=== PATIENT | female | born 1960 | race Caucasian/White ===

== ENCOUNTER 2017-09-21 02:01 | Emergency (ER) | payer BC ==
[~2017-09-21] VITALS: Ht 162.6 cm; Wt 51.8 kg
[~2017-09-21 02:01] MED LIST: AVONEX33 MCG; DETROL LA 2 MG2 MG PO; DEXTROAMPHETAMI10 MG PO; DOXYCYCLINE 10100 MG PO; NORCO 325 MG-51 TAB PO
[2017-09-21 02:05] VITALS: BP 141/99; TEMP 98.3
[2017-09-21] MEDS ORDERED: VALTREX1 GM PO (02:47)
[2017-09-21 02:49] VITALS: PULSE 70
== END 2017-09-21 02:49 | disposition home or self-care (01) ==
LOC: COL.ER 02:01
DX: L30.9 Dermatitis, unspecified (principal); M25.562 Pain in left knee; G35 Multiple sclerosis

== ENCOUNTER 2023-06-18 22:09 | Emergency (ER) | payer BC ==
[~2023-06-18] VITALS: Ht 160 cm; Wt 52.3 kg
[~2023-06-18 22:09] MED LIST changes: +VALTREX1 GM PO
[2023-06-18 22:21] VITALS: TEMP 98
[2023-06-18] MEDS ORDERED: PROAIR HFA0.09 MG/AC IH (23:00)
[2023-06-18 23:48] VITALS: BP 123/81; PULSE 78
== END 2023-06-18 23:48 | disposition home or self-care (01) ==
LOC: COL.ER 22:09
DX: U07.1 COVID-19 (principal); R06.02 Shortness of breath; R05.9 Cough, unspecified; R09.81 Nasal congestion; R06.2 Wheezing; R50.9 Fever, unspecified; Z73.0 Burn-out